=== PATIENT | female | born 1980 | race Caucasian/White ===

== ENCOUNTER 2023-07-25 10:07 | Outpatient (OUT) | payer BC, SELFPAY ==
--- NOTE | 2023-07-25 10:13 | VEIN_ITS ---
Patient Name: JESSICA CREWS MR#: [id number] : 1980 Exam Date: 07/25/2023 Ordering Doctor: DR JOVANI MOSCOSO M.D. RADIOLOGY REPORT PROCEDURE: FACILITY [facility] [place] - OFFICE VISIT INITIAL COMPARISON: None. PROGRESS NOTES: [age] year old female who presents with a 7 year history of mild leg tenderness, bilateral dilated superficial veins, aching. The patient's right leg symptoms are worse than the left. There has been a progression of symptoms over time. This increases minimally prolonged dependency. The patient describes no significant change with rest and elevation. The patient denies any signs and symptoms to suggest arterial ischemia. The patient describes a family history of varicose veins on maternal side. The patient has drinking and smoking history of : Occasional alcohol consumption; no tobacco use. Patient has a past medical history significant for : None pertinent. The patient denies a history of deep venous thrombus or pulmonary embolus. See separate history and physical for medication list. No prior treatment for varicose or spider veins. No use of compression stockings. After review of nurse notes, history and physical exam I discussed at length the pathophysiology of venous hypertension and possible treatments, therapies and strategies available. We discussed at length the importance of elevating the lower extremities above the level of the heart, increased physical activity and compression stocking use. Ultrasound venous reflux study performed today was discussed at length with the patient. The report demonstrates mildly dilated incompetent proximal right great saphenous vein and proximal left great saphenous vein.. PHYSICAL EXAM: The right leg demonstrates no significant varicosities, single large area of reticular/spider veins and several small scattered spider veins, no ulceration, no edema, no skin discoloration. The left leg demonstrates no significant varicosities, single prominent spider vein and several scattered smaller spider veins, no ulceration, no edema, no skin discoloration. Both thighs, legs and feet were symmetrically warm to the touch. Good posterior tibial and dorsalis pedis pulses were present bilaterally. [facility] IMPRESSION: 1. Mild bilateral lower extremity venous insufficiency 2. Mild lower extremity varicose veins 3. No significant lower extremity subcutaneous edema 4. No flow significant arterial disease 5. CEAP: C1, EP, , MA PLAN: 1. Use of compression stockings for symptomatic relief if symptoms develop. 2. Elevated legs and increased physical activity for symptomatic relief 3. Sclerotherapy of bilateral lower extremity symptomatic spider veins and prominent reticular veins. Nurse notes, history and physical were reviewed and confirmed, see attached forms. The nurse was present throughout the physical exam and consultation Dictated by: Rohit Avendano M.D. on 07/25/2023 at 11:31 Approved by: Rohit Avendano M.D. on 07/25/2023 at 11:45
--- NOTE | 2023-07-25 10:13 | VEIN_ITS ---
Patient Name: JESSICA CREWS MR#: [id number] : 1980 Exam Date: 07/25/2023 Ordering Doctor: DR JOVANI MOSCOSO M.D. RADIOLOGY REPORT PROCEDURE: VC EXT VENOUS REFLUX TRISTON LMTD COMPARISON: None. INDICATIONS: I83.813 Bilateral painful varicose veins TECHNIQUE: Duplex imaging of the lower extremity to assess the deep and superficial venous system for the presence of deep or superficial venous incompetence and to document the location and severity of disease. The study includes evaluation of the great saphenous vein (GSV), anterior accessory saphenous vein (AASV) and small saphenous vein (SSV). Patient scanned in reverse Trendelenburg and standing. FINDINGS: RIGHT LOWER EXTREMITY: Saphenofemoral Junction Reflux: Yes 6.9mm 2.5 sec GSV: Diam (mm) Reflux/ Time (sec) Proximal Thigh 6.6 Yes 1.5 Mid Thigh 4.1 Yes 2.0 Distal Thigh 4.1 No Prox Calf 2.7 No Mid Calf 2.2 No Saphenopopliteal Junction Reflux: 2.2mm No SSV: Proximal Calf 2.1 No Mid Calf 2.3 No AASV: Not present Proximal Thigh Mid Thigh Distal Thigh Thrombi: No acute or chronic thrombus visualized Compressibility: Normal Flow: Normal Preforator: No perforators visualized. Tech Note: Incompetent GSV. Patent varicose vein mid/med thigh 2.7mm with 0.7s reflux. Patent varicose vein dist/lat thigh 2.5mm with 0.8s reflux. LEFT LOWER EXTREMITY: Saphenofemoral Junction Reflux: Yes 6.0 mm 1.7 sec GSV: Diam (mm) Reflux/Time (sec) Proximal Thigh 5.9 Yes 1.1 Mid Thigh 4.7 Yes 1.2 Distal Thigh 4.2 No Prox Calf 2.8 Yes 0.9 Mid Calf 2.2 Yes 1.2 Saphenopopliteal Junction Relux: 3.6 mm No SSV: Proximal Calf 2.6 No Mid Calf 2.4 No AASV: Not present Proximal Thigh Mid Thigh Distal Thigh Thrombi: No acute or chronic thrombus visualized Compressibility: Normal Flow: Normal Wharf Worker: No perforators visualized. Tech Note: Patent varicose vein mid/ant thigh 2.1mm with 1.1s reflux. Patent varicose vein mid/post calf 2.4mm with 0.5s reflux. CONCLUSION: 1. Mildly dilated and incompetent great saphenous vein bilaterally. Dictated by: Rohit Avendano M.D. on 07/25/2023 at 11:11 Approved by: Rohit Avendano M.D. on 07/25/2023 at 11:31
== END 2023-07-25 10:08 | disposition home or self-care (01) ==
PROVIDERS: PCP Radiology Diagnostic Radiology; Visit Provider Radiology Diagnostic Radiology
DX: I83.813 Varicose veins of bilateral lower extremities with pain (principal)
CPT/HCPCS: 93970; G0463